=== PATIENT | female | born 1945 | race Caucasian/White ===

== ENCOUNTER → 2018-08-17 11:07 | Outpatient (CLI) | payer MEDICARE, SELFPAY ==
[2018-08-17 12:06] LABS: Eosinophils % 0.3 % (0.1-12.0); Hematocrit 41.2 % (37.0-47.0); Lymphocytes % 13.2 K/mm3 (10-50); Mean Corpuscular HGB Conc 31.5 g/dL (31.8-35.4); Mean Corpuscular Hemoglobin 28.3 pg (27.0-31.2); Mean Corpuscular Volume 89.9 fl (81-99); Mean Platelet Volume 7.3 fl (7.4-10.4); Monocytes # 0.4 K/mm3 (0.1-1.0); Monocytes % 4.7 % (1.7-9.3); Neutrophils # 6.2 K/mm3 (1.8-7.8); Neutrophils % 81.7 % (37.0-80.0); Platelet Count 347 K/mm3 (142-424); Red Blood Count 4.59 M/mm3 (4.20-5.40); Red Cell Distribution Width 12.4 % (11.5-17.5); White Blood Count 7.6 K/mm3 (4.8-10.8)
[2018-08-17 13:12] LABS: Alanine Aminotransferase 42 U/L (12-78); Albumin Level 4.1 gm/dL (3.4-5.0); Albumin/Globulin Ratio 1.2 (1.1-1.8); Alkaline Phosphatase 108 U/L (46-116); Anion Gap 10.4 mEq/L (5-15); Aspartate Amino Transferase 28 U/L (15-37); Bilirubin,Total 0.2 mg/dL (0.2-1.0); Blood Urea Nitrogen 11 mg/dL (7-18); Carbon Dioxide 29 mmol/L (21.0-32.0); Chloride 104 mmol/L (98-107); Chol/HDL Ratio 4.2 (1-3.5); Cholesterol 208 mg/dL (140-200); Creatinine,Serum 0.68 mg/dL (0.55-1.02); Estimated Glomerular Filt Rate 85 ml/min (>60); GFR (African American) 103 ML/MIN (>60); Globulin 3.3 gm/dl (1.3-3.2); Glucose 98 mg/dL (74-106); HDL Cholesterol 49 mg/dL (29-89); LDL Cholesterol 112 mg/dL (0-130); Potassium 4.4 mmoL/L (3.5-5.1); Sodium 139 mmol/L (136-145); Total Protein,Serum 7.4 gm/dL (6.4-8.2); Triglycerides 237 mg/dL (30-200); VLDL Cholesterol 47 mg/dL (0-40)
[2018-08-18 10:16] LABS: Lithium (Eskalith(R)) 0.5 mmol/L (0.6-1.2)
== END ==
PROVIDERS: PCP Internal Medicine Adolescent Medicine; Visit Provider Internal Medicine Adolescent Medicine
DX: E78.5 Hyperlipidemia, unspecified (principal); F31.9 Bipolar disorder, unspecified; Z86.2 Personal history of diseases of the blood and blood-forming organs and certain disorders involving the immune mechanism
CPT/HCPCS: 36415; 80053; 80061; 80178; 85025

== ENCOUNTER 2019-01-23 22:45 | Inpatient (IN) ==
[2019-01-23 23:34] LABS: Basophils % 0.1 % (0.1-2.0); Eosinophils % 0.1 % (0.1-12.0); Hematocrit 39.8 % (37.0-47.0); Hemoglobin 12.8 g/dL (12.2-16.2); Lymphocytes # 1.7 K/mm3 (0.7-4.5); Lymphocytes % 9.3 % (10-50); Mean Corpuscular HGB Conc 32.3 g/dL (31.8-35.4); Mean Corpuscular Hemoglobin 28.3 pg (27.0-31.2); Mean Corpuscular Volume 87.7 fl (81-99); Mean Platelet Volume 7.5 fl (7.4-10.4); Monocytes # 1.1 K/mm3 (0.1-1.0); Monocytes % 6.1 % (1.7-9.3); Neutrophils # 15.3 K/mm3 (1.8-7.8); Neutrophils % 84.4 % (37.0-80.0); Platelet Count 525 K/mm3 (142-424); Red Blood Count 4.54 M/mm3 (4.20-5.40); White Blood Count 18.2 K/mm3 (4.8-10.8)
--- NOTE | 2019-01-23 23:34 | Emergency Department Note ---
ED Disposition Clinical Impression: Febrile illness, acute Rhabdomyolysis Qualifiers: Rhabdomyolysis type: non-traumatic Qualified Code(s): M62.82 - Rhabdomyolysis Disposition: Admitted as Observation Condition on Discharge: Fair Referrals: Miguel Newsome MD [Primary Care Provider] - - Critical Care Critical Care Time: No Attestation: On 01/23/19, the high probability of a clinically significant, sudden or life threatening deterioration of the following system(s) required my full and direct attention, intervention and personal management. The time I documented below is in addition to time spent performing reported procedures but includes the following listed in this critical care notation. Medical Decision Making - Medical Records Medical records reviewed: Yes: I reviewed the patient's medical records. - Anthony Inquiry Pt receiving controlled substance: No Vital Signs: 01/23/19 23:07 01/24/19 00:03 Temperature 101.4 F H Temperature Source Rectal Pulse Rate [Right Radial] 131 H 124 H Respiratory Rate 20 20 Blood Pressure [Right Arm] 137/75 132/74 Blood Pressure Mean [Right Arm] 95 93 Blood Pressure Source [Right Arm] Automatic Cuff Blood Pressure Position [Right Arm] Supine 02 Sat by Pulse Oximetry 94 L 94 L - Lab Data Lab results reviewed: Yes: I reviewed the patient's lab results. Lab Results 01/23/19 23:15: Urine Color Yellow, Urine Appearance Clear, Urine pH 6.5, Ur S pecific [place] <= 1.005, Urine Protein Negative, Urine Glucose (UA) Negative, Urine Ketones 1+, Urine Blood Trace-i, Urine Nitrate Negative, Urine Bilirubin Negative, Urine Urobilinogen 0.2, Ur Leukocyte Esterase Negative, Urine RBC 3-5, Urine WBC Occasional, Ur Squamous Epith Cells 3-5, Urine Bacteria Trace 01/23/19 23:15: WBC 18.2 H, RBC 4.54, Hgb 12.8, Hct 39.8, MCV 87.7, MCH 28.3, MCHC 32.3, RDW 13.0, Plt Count 525 H, MPV 7.5, Neut % (Auto) 84.4 H, Lymph % (Auto) 9.3 L, [place] % (Auto) 6.1, Eos % (Auto) 0.1, Baso % (Auto) 0.1, Neut # (Auto) 15.3 H, Lymph # (Auto) 1.7, [place] # (Auto) 1.1 H, Eos # (Auto) 0.0, Baso # (Auto) 0.0, Total Counted 100, Neutrophils % (Manual) 89 H, Lymphocytes % (Manual) 6 L, Monocytes % (Manual) 5, Platelet Estimate Normal, Anisocytosis 1+, Stomatocytes 1+ 01/23/19 23:15: Sodium 134 L, Potassium 3.2 L, Chloride 96 L, Carbon Dioxide 19 L, Anion Gap 22.2 H, BUN 6 L, Creatinine 0.73, Estimated Creat Clear 46, Es timated GFR 78, Est GFR ( Amer) 95, Glucose 171 H, Calcium 9.4, Total Bilirubin 0.5, AST 44 H, ALT 23, Alkaline Phosphatase 98, Total Creatine Kinase 1340 H*, Troponin I < 0.02, Total Protein 7.6, Albumin 3.7, Globulin 3.9 H, Albumin/Globulin Ratio 0.9 L 01/23/19 23:15: Influenza Type A Ag Negative, Influenza Type B Ag Negative 01/23/19 23:15: Lactate 1.7 Result diagrams: 01/23/19 23:15 01/23/19 23:15 Orders (Tests/Meds): ED MEDICATIONS Generic Name Dose Route Start Last Admin Trade Name Freq PRN Reason Stop Dose Admin Sodium Chloride 1,000 mls @ 999 mls/hr 01/23/19 23:15 01/23/19 23:27 Sod Chlor 0.9% 1000ml Bag IV 01/24/19 00:15 999 mls/hr .[id number] ROGELIO Administration Sodium Chloride 10 ml 01/23/19 23:13 Saline Flush 10ml Syringe IV 02/22/19 23:12 NEEDED PRN Maintain IV Site Discontinued Medications Generic Name Dose Route Start Last Admin Trade Name Freq PRN Reason Stop Dose Admin Acetaminophen 650 mg 01/23/19 23:13 01/23/19 23:27 Tylenol 325mg Suppository RC 01/23/19 23:14 650 mg ONCE ONE Administration Ondansetron HCl 4 mg 01/23/19 23:59 01/24/19 00:10 Zofran 4mg/2ml Vial IV 01/24/19 00:00 4 mg ONCE ONE Administration ORDERS Category Date Time Status CT cervical spine wo con Stat Cat Scan 01/23/19 23:[address] head/brain wo con Stat Cat Scan 01/23/19 23:12 Taken XR chest portable Stat Exams 01/23/19 23:12 Taken XR pelvis 1-2V Stat Exams 01/23/19 23:13 Taken [place] (Eskalith(R)) Stat Lab 01/23/19 23:15 Received Blood Culture Stat Micro 01/23/19 23:28 Received - Radiology Data #1 Image(s): Chest, Pelvis Image Reviewed: Yes I reviewed the patient's radiology image Preliminary Findings: No Fracture Seen - CT Data CT Scan: Head, C-Spine Time Received: 00:[address] Reviewed: Yes: I have viewed the radiologist's interpretation Preliminary Findings: No Fracture Seen - ECG Data Tracing #1 I reviewed this ECG and interpreted as documented below: Arrhythmias present: sinus tach Ischemic changes: non-specific ST-T wave changes - Physician Consults Physician Consulted: ruperto Reason -: Admission Fever HPI - General Chief Complaint: Fever Stated Complaint: vomiting,weakness Time Seen by Provider: 01/23/19 23:15 Mode of Arrival: Family Vehicle Source of Information: Patient, Spouse, Relative, Medical Record Limitations: Physical Limitations Description of Symptoms (Recalled from ER Triage Doc. by RN): pt has been ill for a few months per family. pt has been battling bells palsy. family reports that tonight patient became "uneasy to comfort" and she felt hot. pt then vomited. pt is weak and states she is "too weak to stand." family reports a fall 4 days ago at home. - History of Present Illness HPI Narrative: pt with weakness and dec po intake over the last few days - no diarrhea or reported skin breakdown - no cough - has been lying down more than before MD complaint: weakness Onset (ago): day(s) Treatments prior to arrival fever: none - Related Data Home Medications Medication Instructions Recorded Confirmed ARIPiprazole [Aripiprazole 15mg 15 mg PO DAILY 01/23/19 01/23/19 Tablet] Ferrous Sulfate 325 mg PO DAILY 01/23/19 01/23/19 [place] Carbonate [[place] 300 mg PO BID 01/23/19 01/23/19 Carbonate ER] Oxybutynin Chloride [Oxybutynin 15 mg PO DAILY 01/23/19 01/23/19 Chloride ER] Quetiapine Fumarate 300 mg PO DAILY 01/23/19 01/23/19 Trazodone HCl 150 mg PO DAILY 01/23/19 01/23/19 buPROPion HCl [Bupropion HCl Sr] 100 mg PO BID 01/23/19 01/23/19 Allergies Allergy/AdvReac Type Severity Reaction Status Date / Time polymyxin B [POLYMYXIN B] Allergy Intermediate SKIN Verified 01/23/19 23:27 REDDNESS sulfamethoxazole Allergy Intermediate I-RASH Verified 01/23/19 23:27 [From BACTRIM] trimethoprim [From BACTRIM] Allergy Intermediate I-RASH Verified 01/23/19 23:27 acetaminophen Allergy Unknown Verified 01/23/19 23:27 [From HYCOMINE COMPOUND] ampicillin [AMPICILLIN] Allergy Unknown Verified 01/23/19 23:27 atropine [ATROPINE] Allergy Unknown Verified 01/23/19 23:27 azithromycin [AZITHROMYCIN] Allergy Unknown Verified 01/23/19 23:27 cefaclor [From CECLOR] Allergy Unknown Verified 01/23/19 23:27 chlorpheniramine Allergy Unknown Verified 01/23/19 23:27 [CHLORPHENIRAMINE] clemastine [CLEMASTINE] Allergy Unknown Verified 01/23/19 23:27 codeine [CODEINE] Allergy Unknown Verified 01/23/19 23:27 doxycycline [DOXYCYCLINE] Allergy Unknown Verified 01/23/19 23:27 hydrocodone Allergy Unknown Verified 01/23/19 23:27 [From HYCOMINE COMPOUND] hyoscyamine Allergy Unknown Verified 01/23/19 23:27 [From STAHIST (REFORMULATED)] ibuprofen [From MOTRIN] Allergy Unknown Verified 01/23/19 23:27 iodine [IODINE] Allergy Unknown Verified 01/23/19 23:27 lincomycin [LINCOMYCIN] Allergy Unknown Verified 01/23/19 23:27 metronidazole [METRONIDAZOLE] Allergy Unknown Verified 01/23/19 23:27 neomycin [NEOMYCIN] Allergy Unknown Verified 01/23/19 23:27 nitrofurantoin Allergy Unknown Verified 01/23/19 23:27 [NITROFURANTOIN] ofloxacin [OFLOXACIN] Allergy Unknown Verified 01/23/19 23:27 phenylephrine Allergy Unknown Verified 01/23/19 23:27 [From HYCOMINE COMPOUND] pseudoephedrine Allergy Unknown Verified 01/23/19 23:27 [PSEUDOEPHEDRINE] scopolamine Allergy Unknown Verified 01/23/19 23:27 [From STAHIST (REFORMULATED)] Sulfa (Sulfonamide Allergy Unknown Verified 01/23/19 23:27 Antibiotics) [SULFA (SULFONAMIDE ANTIBIOTICS)] tetanus and diphtheria Allergy Unknown Verified 01/23/19 23:27 toxoids [TETANUS AND DIPHTHERIA TOXOIDS] From EGGS (FOOD/DRUG) Allergy Mild GI UPSET Uncoded 10/19/17 15:01 From STRAWBERRIES (FOOD/DRUG) Allergy Mild FACE TURNS Uncoded 10/19/17 15:01 RED AZOGANTRISIN Allergy Unknown UNKNOWN Uncoded 10/19/17 15:01 RAXAR TABLETS Allergy Unknown UNKNOWN Uncoded 10/19/17 15:01 TETRACYCLINES Allergy Unknown Uncoded 10/19/17 15:01 THEMAZOPYRIDINE Allergy Unknown UNKNOWN Uncoded 10/19/17 15:01 URISED Allergy Unknown UNKNOWN Uncoded 10/19/17 15:01 [facility] History - Hepatitis A Screen Drug use history?: No High risk sexual behaviors?: No History of sexually transmitted infection?: No Currently employed?: No Childcare worker?: No Do you have indoor plumbing?: Yes Do you have electricity?: Yes Attestation statement:: This patient has been screened for Hepatitis A risk factors. I have reviewed the patient's past medical history: Yes Medical History: Denies:: Cancer, Diabetes Mellitus Type 1, Diabetes Mellitus Type 2, MRSA Amputation: No - Social History Alcohol Intake: never Occupational Status: retired - Psychiatric History Expresses thoughts of harming self/others: None Suicide Plan Description: No Plan ROS Obtained: Yes All systems reviewed & no additional complaints - Constitutional Constitutional: Reports fever(s), Reports weakness - Eyes Eyes: Denies change in vision - ENT Ears, Nose, Mouth, and Throat: Denies sore throat - Cardiovascular Cardiovascular: Denies chest pain - Respiratory Respiratory: No cough - Gastrointestinal Gastrointestingal: Denies: abdominal pain - Genitourinary Female Genitourinary: Denies hematuria - Musculoskeletal Musculoskeletal: Denies joint pain - Integumentary/Breasts Skin/Breast: Denies rash - Neurologic Neurologic: Denies seizure-like activity Physical Exam - General General appearance: alert, lethargic - Head Head exam: normocephalic - Eye Eye exam: Present: other (wearing patch rt eye has hx of bells palsy) - ENT ENT exam: Present: mucous membranes dry - Neck Neck exam: Present: trachea midline - Respiratory Respiratory exam: Present: other (dec bs bilat ). Absent: respiratory distress - Cardiovascular Cardiovascular exam: Present: regular rate, systolic murmur - Abdominal Exam Abdominal exam: Present: soft. Absent: tenderness, guarding - Extremities Exam Extremities exam: Absent: calf tenderness - Neurological Exam Neurological exam: Present: alert, oriented X3, CN II-XII intact - Psychiatric Psychiatric exam: Present: normal affect - Skin Skin exam: Absent: rash
[2019-01-23 23:39] LABS: Microscopic, Urine URINE MICROSCOPIC (MICROSCOPIC)
[2019-01-23 23:42] LABS: Appearance,Urine CLEAR (Clear); Bilirubin,Urine Negative (Negative); Blood, Urine TRACE-I (Negative); Color,Urine YELLOW (Yellow); Glucose,Urine (UA) Negative (Negative); Ketones,Urine 1+ (Negative); Leukocyte Esterase,Urine Negative (Negative); PH,Urine 6.5 (5.0-8.5); Protein,Urine Negative (Negative); Specific Gravity, Urine <= 1.005 (1.005-1.030); Urobilinogen,Urine 0.2 EU/dl (0.2)
[2019-01-23 23:49] LABS: Bacteria,Urine Trace /lpf; WBC,Urine Occasional #/hpf (0-3)
[2019-01-23 23:56] LABS: Alanine Aminotransferase 23 U/L (12-78); Albumin Level 3.7 gm/dL (3.4-5.0); Albumin/Globulin Ratio 0.9 (1.1-1.8); Alkaline Phosphatase 98 U/L (46-116); Anion Gap 22.2 mEq/L (5-15); Aspartate Amino Transferase 44 U/L (15-37); Bilirubin,Total 0.5 mg/dL (0.2-1.0); Blood Urea Nitrogen 6 mg/dL (7-18); Calcium 9.4 mg/dL (8.5-10.1); Carbon Dioxide 19 mmol/L (21.0-32.0); Chloride 96 mmol/L (98-107); Globulin 3.9 gm/dl (1.3-3.2); Glucose 171 mg/dL (74-106); Potassium 3.2 mmoL/L (3.5-5.1); Sodium 134 mmol/L (136-145); Total Protein,Serum 7.6 gm/dL (6.4-8.2)
[2019-01-23 23:58] LABS: Creatine Kinase 1340 U/L (26-192)
[2019-01-24 00:10] LABS: Anisocytosis 1+; Lymphocytes % 6 % (10-50); Monocytes % 5 % (2-9); Neutrophils % 89 % (42-76); Stomatocytes 1+; Total Cells Counted 100
[2019-01-24 06:29] LABS: Hematocrit 37.1 % (37.0-47.0); Hemoglobin 11.9 g/dL (12.2-16.2); Lymphocytes # 1.2 K/mm3 (0.7-4.5); Lymphocytes % 9.4 % (10-50); Mean Corpuscular Hemoglobin 28.7 pg (27.0-31.2); Mean Corpuscular Volume 89.8 fl (81-99); Mean Platelet Volume 6.9 fl (7.4-10.4); Monocytes # 0.6 K/mm3 (0.1-1.0); Monocytes % 4.8 % (1.7-9.3); Neutrophils # 10.5 K/mm3 (1.8-7.8); Neutrophils % 85.7 % (37.0-80.0); Platelet Count 400 K/mm3 (142-424); Red Blood Count 4.14 M/mm3 (4.20-5.40); Red Cell Distribution Width 12.9 % (11.5-17.5); White Blood Count 12.3 K/mm3 (4.8-10.8)
--- NOTE | 2019-01-24 07:27 | Pharmacy Consult Notes ---
[facility] Pharmacy VTE Monitoring - Patient Demographics Admission date: 01/23/19 Report Date: 01/24/19 Time: 07: Allergies/Adverse Reactions: Patient Allergies polymyxin B [POLYMYXIN B] Allergy (Intermediate, Verified 01/23/19 23:27) SKIN REDDNESS sulfamethoxazole [From BACTRIM] Allergy (Intermediate, Verified 01/23/19 23:27) I-RASH trimethoprim [From BACTRIM] Allergy (Intermediate, Verified 01/23/19 23:27) I-RASH acetaminophen [From HYCOMINE COMPOUND] Allergy (Unknown, Verified 01/23/19 23:27) ampicillin [AMPICILLIN] Allergy (Unknown, Verified 01/23/19 23:27) atropine [ATROPINE] Allergy (Unknown, Verified 01/23/19 23:27) azithromycin [AZITHROMYCIN] Allergy (Unknown, Verified 01/23/19 23:27) cefaclor [From CECLOR] Allergy (Unknown, Verified 01/23/19 23:27) chlorpheniramine [CHLORPHENIRAMINE] Allergy (Unknown, Verified 01/23/19 23:27) clemastine [CLEMASTINE] Allergy (Unknown, Verified 01/23/19 23:27) codeine [CODEINE] Allergy (Unknown, Verified 01/23/19 23:27) doxycycline [DOXYCYCLINE] Allergy (Unknown, Verified 01/23/19 23:27) hydrocodone [From HYCOMINE COMPOUND] Allergy (Unknown, Verified 01/23/19 23:27) hyoscyamine [From STAHIST (REFORMULATED)] Allergy (Unknown, Verified 01/23/19 23:27) ibuprofen [From MOTRIN] Allergy (Unknown, Verified 01/23/19 23:27) iodine [IODINE] Allergy (Unknown, Verified 01/23/19 23:27) lincomycin [LINCOMYCIN] Allergy (Unknown, Verified 01/23/19 23:27) metronidazole [METRONIDAZOLE] Allergy (Unknown, Verified 01/23/19 23:27) neomycin [NEOMYCIN] Allergy (Unknown, Verified 01/23/19 23:27) nitrofurantoin [NITROFURANTOIN] Allergy (Unknown, Verified 01/23/19 23:27) ofloxacin [OFLOXACIN] Allergy (Unknown, Verified 01/23/19 23:27) phenylephrine [From HYCOMINE COMPOUND] Allergy (Unknown, Verified 01/23/19 23:27) pseudoephedrine [PSEUDOEPHEDRINE] Allergy (Unknown, Verified 01/23/19 23:27) scopolamine [From STAHIST (REFORMULATED)] Allergy (Unknown, Verified 01/23/19 23:27) Sulfa (Sulfonamide Antibiotics) [SULFA (SULFONAMIDE ANTIBIOTICS)] Allergy (Unknown, Verified 01/23/19 23:27) tetanus and diphtheria toxoids [TETANUS AND DIPHTHERIA TOXOIDS] Allergy (Unknown, Verified 01/23/19 23:) From EGGS (FOOD/DRUG) Allergy (Mild, Uncoded 10/19/17 15:01) GI UPSET From STRAWBERRIES (FOOD/DRUG) Allergy (Mild, Uncoded 10/19/17 15:01) FACE TURNS RED AZOGANTRISIN Allergy (Unknown, Uncoded 10/19/17 15:01) UNKNOWN RAXAR TABLETS Allergy (Unknown, Uncoded 10/19/17 15:01) UNKNOWN TETRACYCLINES Allergy (Unknown, Uncoded 10/19/17 15:01) THEMAZOPYRIDINE Allergy (Unknown, Uncoded 10/19/17 15:01) UNKNOWN URISED Allergy (Unknown, Uncoded 10/19/17 15:01) UNKNOWN Height: 1.57 m Weight: 54.686 kg Patient Problems: Current Active Problems Febrile illness, acute (Acute) Rhabdomyolysis (Acute) - VTE Risk Labs: VTE Related Lab Results Hgb 11.9 g/dL (12.2-16.2) L 01/24/19 05:50 Hct 37.1 % (37.0-47.0) 01/24/19 05:50 Plt Count 400 K/mm3 (142-424) 01/24/19 05:50 BUN 4 mg/dL (7-18) L D 01/24/19 05:50 Creatinine 0.64 mg/dL (0.55-1.02) 01/24/19 05:50 Estimated Creat Clear 44 mL/min (50-200) 01/24/19 05:50 Was VTE Risk Assessment Performed: Yes VTE Score: 1 VTE Risk Level: Very Low Risk - Prophylaxis VTE Prophylaxis Ordered?: Yes Types of VTE Prophylaxis: TEDS Knee High Location of Applied Device: Bilateral Lower Extremeties - VTE Diagnosis Confirmed Treatment or plan recommended: Continue Current Treatment
[2019-01-24 07:56] LABS: Calcium 8.3 mg/dL (8.5-10.1)
--- NOTE | 2019-01-24 11:35 | History & Physical Report ---
*Admission Date: 01/23/19 *Chief complaint: fever, dehydration, rhabdomyelisis *History of present illness: Ms. Peck is a 73-year-old female with history of Correa's palsy who presents to the ER with headache for 4 days and onset of fever and irritability on day of admission. She reports she fell at home sustaining no visible injuries, no concussion per her . She proceeded to have onset of headache on Wednesday that did not respond to multiple doses of Excedrin Migraine over the course of the weekend. On Wednesday she became more irritable, developed a fever, nausea, vomiting. Due to weakness from this illness the family brought her to the emergency room for assessment. On presentation she was found to have a fever greater than 101. Lab work significant for elevated CK and leukocytosis. Imaging was unremarkable for any fractures or intracranial pathology. On my assessment this morning patient is in bed under the covers because she is chilling. Denies any nausea or vomiting. Headache is improving with Tylenol. Of note she has a patch on her right eye due to her Correa's palsy, and has copious purulent drainage from her right eye. This was unfortunately not remarked on at time of presentation to the emergency room. Otherwise she denies shortness of breath, confusion, altered mental status, new focal neurologic deficits, chest pain [facility] History I have reviewed the patient's past medical history: Yes Medical History: Reports:: Hyperlipidemia Denies:: Cancer, Diabetes Mellitus Type 1, Diabetes Mellitus Type 2, MRSA *Have you ever received a pneumonia vaccine?: Yes *Have you received a flu vaccine this season?: Yes Amputation: No - *Social History Alcohol Intake: never *Occupational Status:: retired Housing: house Household Members: spouse *Travel in the last 8 weeks: None - Psychiatric History Expresses thoughts of harming self/others: None Suicide Plan Description: No Plan Family Hx:: Unable to obtain Review of Systems - *Neurologic Reports weakness, Denies seizure-like activity Meds Home Medications Medication Instructions Recorded Confirmed Type ARIPiprazole [Aripiprazole 15mg 15 mg PO 1900 01/23/19 01/24/19 History Tablet] Ferrous Sulfate 325 mg PO 0600 01/23/19 01/24/19 History Intercourse Carbonate [Intercourse 300 mg PO 1700 01/23/19 01/24/19 History Carbonate ER] Oxybutynin Chloride [Oxybutynin 15 mg PO 1800 01/23/19 01/24/19 History Chloride ER] Quetiapine Fumarate 300 mg PO 1900 01/23/19 01/24/19 History Trazodone HCl 150 mg PO 1900 01/23/19 01/24/19 History buPROPion HCl [Bupropion HCl Sr] 100 mg PO 0600,1500 01/23/19 01/24/19 History Allergies Allergy/AdvReac Type Severity Reaction Status Date / Time polymyxin B [POLYMYXIN B] Allergy Intermediate SKIN Verified 01/23/19 23:27 REDDNESS sulfamethoxazole Allergy Intermediate I-RASH Verified 01/23/19 23:27 [From BACTRIM] trimethoprim [From BACTRIM] Allergy Intermediate I-RASH Verified 01/23/19 23:27 acetaminophen Allergy Unknown Verified 01/23/19 23:27 [From HYCOMINE COMPOUND] ampicillin [AMPICILLIN] Allergy Unknown Verified 01/23/19 23:27 apple Allergy Unknown Verified 01/24/19 12:39 atropine [ATROPINE] Allergy Unknown Verified 01/23/19 23:27 azithromycin [AZITHROMYCIN] Allergy Unknown Verified 01/23/19 23:27 cefaclor [From CECLOR] Allergy Unknown Verified 01/23/19 23:27 chlorpheniramine Allergy Unknown Verified 01/23/19 23:27 [CHLORPHENIRAMINE] clemastine [CLEMASTINE] Allergy Unknown Verified 01/23/19 23:27 codeine [CODEINE] Allergy Unknown Verified 01/23/19 23:27 doxycycline [DOXYCYCLINE] Allergy Unknown Verified 01/23/19 23:27 hydrocodone Allergy Unknown Verified 01/23/19 23:27 [From HYCOMINE COMPOUND] hyoscyamine Allergy Unknown Verified 01/23/19 23:27 [From STAHIST (REFORMULATED)] ibuprofen [From MOTRIN] Allergy Unknown Verified 01/23/19 23:27 iodine [IODINE] Allergy Unknown Verified 01/23/19 23:27 lincomycin [LINCOMYCIN] Allergy Unknown Verified 01/23/19 23:27 metronidazole [METRONIDAZOLE] Allergy Unknown Verified 01/23/19 23:27 neomycin [NEOMYCIN] Allergy Unknown Verified 01/23/19 23:27 nitrofurantoin Allergy Unknown Verified 01/23/19 23:27 [NITROFURANTOIN] ofloxacin [OFLOXACIN] Allergy Unknown Verified 01/23/19 23:27 phenylephrine Allergy Unknown Verified 01/23/19 23:27 [From HYCOMINE COMPOUND] pseudoephedrine Allergy Unknown Verified 01/23/19 23:27 [PSEUDOEPHEDRINE] scopolamine Allergy Unknown Verified 01/23/19 23:27 [From STAHIST (REFORMULATED)] Sulfa (Sulfonamide Allergy Unknown Verified 01/23/19 23:27 Antibiotics) [SULFA (SULFONAMIDE ANTIBIOTICS)] tetanus and diphtheria Allergy Unknown Verified 01/23/19 23:27 toxoids [TETANUS AND DIPHTHERIA TOXOIDS] From STRAWBERRIES (FOOD/DRUG) Allergy Mild FACE TURNS Uncoded 10/19/17 15:01 RED AZOGANTRISIN Allergy Unknown UNKNOWN Uncoded 10/19/17 15:01 RAXAR TABLETS Allergy Unknown UNKNOWN Uncoded 10/19/17 15:01 TETRACYCLINES Allergy Unknown Uncoded 10/19/17 15:01 THEMAZOPYRIDINE Allergy Unknown UNKNOWN Uncoded 10/19/17 15:01 URISED Allergy Unknown UNKNOWN Uncoded 10/19/17 15:01 Exam Vital signs and Labs for Last 24 Hours: Temp Pulse Resp BP Pulse Ox 99.2 F 104 H 18 122/74 97 01/24/19 07:41 01/24/19 07:41 01/24/19 07:41 01/24/19 07:41 01/24/19 07:41 Laboratory Results - last 24 hr 01/23/19 23:15: Urine Color Yellow, Urine Appearance Clear, Urine pH 6.5, Ur Specific [place] <= 1.005, Urine Protein Negative, Urine Glucose (UA) Negative, Urine Ketones 1+, Urine Blood Trace-i, Urine Nitrate Negative, Urine Bilirubin Negative, Urine Urobilinogen 0.2, Ur Leukocyte Esterase Negative, Urine RBC 3-5, Urine WBC Occasional, Ur Squamous Epith Cells 3-5, Urine Bacteria Trace 01/23/19 23:15: WBC 18.2 H, RBC 4.54, Hgb 12.8, Hct 39.8, MCV 87.7, MCH 28.3, MCHC 32.3, RDW 13.0, Plt Count 525 H, MPV 7.5, Neut % (Auto) 84.4 H, Lymph % (Auto) 9.3 L, [place] % (Auto) 6.1, Eos % (Auto) 0.1, Baso % (Auto) 0.1, Neut # (Auto) 15.3 H, Lymph # (Auto) 1.7, [place] # (Auto) 1.1 H, Eos # (Auto) 0.0, Baso # (Auto) 0.0, Total Counted 100, Neutrophils % (Manual) 89 H, Lymphocytes % (Manual) 6 L, Monocytes % (Manual) 5, Platelet Estimate Normal, Anisocytosis 1+, Stomatocytes 1+ 01/23/19 23:15: Sodium 134 L, Potassium 3.2 L, Chloride 96 L, Carbon Dioxide 19 L, Anion Gap 22.2 H, BUN 6 L, Creatinine 0.73, Estimated Creat Clear 46, Estimated GFR 78, Est GFR ( Amer) 95, Glucose 171 H, Calcium 9.4, Total Bilirubin 0.5, AST 44 H, ALT 23, Alkaline Phosphatase 98, Total Creatine Kinase 1340 H*, Troponin I < 0.02, Total Protein 7.6, Albumin 3.7, Globulin 3.9 H, Albumin/Globulin Ratio 0.9 L 01/23/19 23:15: Influenza Type A Ag Negative, Influenza Type B Ag Negative 01/23/19 23:15: Lactate 1.7 01/24/19 05:50: WBC 12.3 H D, RBC 4.14 L, Hgb 11.9 L, Hct 37.1, MCV 89.8, MCH 28.7, MCHC 32.0, RDW 12.9, Plt Count 400, MPV 6.9 L, Neut % (Auto) 85.7 H, Lymph % (Auto) 9.4 L, [place] % (Auto) 4.8, Eos % (Auto) 0.0 L, Baso % (Auto) 0.0 L, Neut # (Auto) 10.5 H, Lymph # (Auto) 1.2, [place] # (Auto) 0.6, Eos # (Auto) 0.0, Baso # (Auto) 0.0 01/24/19 05:50: Sodium 140, Potassium 3.0 L, Chloride 105, Carbon Dioxide 23 D, Anion Gap 15.0, BUN 4 L D, Creatinine 0.64, Estimated Creat Clear 44, Estimated GFR 91, Est GFR ( Amer) 110, Glucose 119 H D, Calcium 8.3 L D, Magnesium 1.7 01/24/19 05:50: Total Creatine Kinase 1334 H* I & O for Last 24 hours: Intake & Output 01/21/19 01/22/19 01/23/19 01/24/19 23:59 23:59 23:59 23:59 Intake Total 1328 / 1328 Output Total 1200 / 1200 Balance 128 / 128 Weight 57.153 kg 54.686 kg - Constitutional chronically ill appearing - *Routine HEENT Exam Comments: right sided facial paralysis consistent with her bells palsy; vision intact bilaterally - right eye with significant suffusion of conjunctiva, erythema of bilateral eye lids, purulent drainage from right eye. - EOMI intact, non painful - *Routine Neck Exam Present: supple. Absent: lymphadenopathy - *Routine Respiratory Exam Present: CTA bilaterally - *Routine Cardiovascular Exam Present: RRR - *Routine Abdominal Exam Present: soft, normoactive bowel sounds. Absent: tenderness - *Routine Extremities Exam Absent: cyanosis, clubbing, edema Comments: muscle wasting, thin extremities - *Routine Skin Exam Present: warm. Absent: rash - *Routine Neurological Exam Present: alert, oriented X3 Assessment and Plan (1) Preseptal cellulitis of right eye Current visit: Yes Status: Acute Category: Medical Code(s): L03.213 - Periorbital cellulitis Patient has Correa's palsy of the right eye, presents with over a week of purulent drainage from the eye and 5 days of headache. Started clindamycin IV and gentamicin drops. Monitor for improvement. CT scan of orbits showed concern for preseptal cellulitis with no periorbital or retro-orbital abscesses. At this time will assess for response to IV antibiotics. 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 Continue IVF rehydration (5) Hypokalemia Current visit: Yes Status: Acute Category: Medical Code(s): E87.6 - Hypokalemia replace as needed, labs in AM to monitor
[2019-01-25 07:15] LABS: Eosinophils % 0.3 % (0.1-12.0); Hematocrit 33.3 % (37.0-47.0); Hemoglobin 10.3 g/dL (12.2-16.2); Lymphocytes # 1.2 K/mm3 (0.7-4.5); Lymphocytes % 15.6 % (10-50); Mean Corpuscular Hemoglobin 28.2 pg (27.0-31.2); Mean Corpuscular Volume 90.9 fl (81-99); Mean Platelet Volume 6.8 fl (7.4-10.4); Monocytes # 0.5 K/mm3 (0.1-1.0); Neutrophils % 78.1 % (37.0-80.0); Platelet Count 360 K/mm3 (142-424); Red Blood Count 3.66 M/mm3 (4.20-5.40); Red Cell Distribution Width 13.3 % (11.5-17.5); White Blood Count 7.7 K/mm3 (4.8-10.8)
[2019-01-25 07:24] LABS: Anion Gap 13.1 mEq/L (5-15); Calcium 7.6 mg/dL (8.5-10.1); Potassium 3.1 mmoL/L (3.5-5.1)
--- NOTE | 2019-01-25 08:10 | Progress Note ---
Internal Medicine - PN: Subj *Date: 01/25/19 *Time: 08:07 Interval history: Patient is a little more talkative today according to her . Continuing to wear her eye patch, when this is removed has less purulent drainage than yesterday, has some significantly reddened sclera and some discoloration to the pupil on cursory flashlight exam. Her lungs are clear, heart rate is regular. Nursing staff points out a new rash on the left flank that her states has been there for a couple of weeks that is not associated with burning or tingling. The rash is a 5 cm x 2 cm oval patch of redness with vesicles consistent with shingles. Patient is talkative, able to move arms and legs well. The left eye is normal with normal range of motion. The surrounding tissue of the right eye is much less reddened. Exam Vital signs and Labs for Last 24 Hours: Temp Pulse Resp BP Pulse Ox 98.2 F 92 H 18 128/72 94 L 01/25/19 07:55 01/25/19 07:55 01/25/19 07:55 01/25/19 07:55 01/25/19 07:55 Laboratory Results - last 24 hr 01/24/19 05:50: Total Creatine Kinase 1334 H* 01/25/19 06:16: WBC 7.7 D, RBC 3.66 L, Hgb 10.3 L, Hct 33.3 L, MCV 90.9, MCH 28.2, MCHC 31.0 L, RDW 13.3, Plt Count 360, MPV 6.8 L, Neut % (Auto) 78.1, Lymph % (Auto) 15.6, [place] % (Auto) 6.0, Eos % (Auto) 0.3, Baso % (Auto) 0.0 L, Neut # (Auto) 6.0, Lymph # (Auto) 1.2, [place] # (Auto) 0.5, Eos # (Auto) 0.0, Baso # (Auto) 0.0 01/25/19 06:16: Sodium 140, Potassium 3.1 L, Chloride 107, Carbon Dioxide 23, Anion Gap 13.1, BUN 3 L, Creatinine 0.66, Estimated Creat Clear 44, Estimated GFR 88, Est GFR ( Amer) 107, Glucose 108 H, Calcium 7.6 L I & O for Last 24 hours: Intake & Output 01/22/19 01/23/19 01/24/19 01/25/19 11:59 11:59 11:59 11:59 Intake Total 1328 / 1328 3286 / 3286 Output Total 1200 / 1200 2550 / 2550 Balance 128 / 128 736 / 736 Weight 120 lb 9 oz 119 lb 9 oz Narrative: Her lungs are clear, heart rate is regular. Nursing staff points out a new rash on the left flank that her states has been there for a couple of weeks that is not associated with burning or tingling. The rash is a 5 cm x 2 cm oval patch of redness with vesicles consistent with shingles. Patient is talkative, able to move arms and legs well. The left eye is normal with normal range of motion. The surrounding tissue of the right eye is much less reddened. Assessment and Plan (1) Preseptal cellulitis of right eye Current visit: Yes Status: Acute Category: Medical Code(s): L03.213 - Periorbital cellulitis Seems to be clinically improving. Imaging study shows no evidence of post septal cellulitis. Ophthalmology evaluation today. 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 Check CPK and other labs tomorrow. (5) Hypokalemia Current visit: Yes Status: Acute Category: Medical Code(s): E87.6 - Hypokalemia (6) Anemia Current visit: Yes Status: Acute Qualifiers: Anemia type: other cause Category: Medical Code(s): D64.9 - Anemia, unspecified Dilutional anemia --follow clinically-currently asymptomatic. (7) Zoster Current visit: Yes Status: Acute Category: Medical Code(s): B02.9 - Zoster without complications Clinical presentation somewhat atypical but characteristic rash appearance. Start acyclovir orally.
[2019-01-26 07:15] LABS: Basophils % 0.1 % (0.1-2.0); Eosinophils % 0.5 % (0.1-12.0); Hematocrit 34.6 % (37.0-47.0); Hemoglobin 10.8 g/dL (12.2-16.2); Lymphocytes # 0.9 K/mm3 (0.7-4.5); Lymphocytes % 13.2 % (10-50); Mean Corpuscular HGB Conc 31.3 g/dL (31.8-35.4); Mean Corpuscular Hemoglobin 28.5 pg (27.0-31.2); Mean Corpuscular Volume 91.3 fl (81-99); Mean Platelet Volume 7.3 fl (7.4-10.4); Monocytes # 0.4 K/mm3 (0.1-1.0); Monocytes % 6.7 % (1.7-9.3); Neutrophils # 5.1 K/mm3 (1.8-7.8); Neutrophils % 79.5 % (37.0-80.0); Platelet Count 373 K/mm3 (142-424); Red Cell Distribution Width 13.4 % (11.5-17.5); White Blood Count 6.4 K/mm3 (4.8-10.8)
--- NOTE | 2019-01-26 07:17 | Discharge Summary ---
General - General Admission date:: 01/24/19 Discharge date: 01/26/19 HPI HPI: Ms. Peck is a 73-year-old female with history of Correa's palsy who presents to the ER with headache for 4 days and onset of fever and irritability on day of admission. She reports she fell at home sustaining no visible injuries, no concussion per her . She proceeded to have onset of headache on Wednesday that did not respond to multiple doses of Excedrin Migraine over the course of the weekend. On Wednesday she became more irritable, developed a fever, nausea, vomiting. Due to weakness from this illness the family brought her to the emergency room for assessment. On presentation she was found to have a fever greater than 101. Lab work significant for elevated CK and leukocytosis. Imaging was unremarkable for any fractures or intracranial pathology. On my assessment this morning patient is in bed under the covers because she is chilling. Denies any nausea or vomiting. Headache is improving with Tylenol. Of note she has a patch on her right eye due to her Correa's palsy, and has copious purulent drainage from her right eye. This was unfortunately not remarked on at time of presentation to the emergency room. Otherwise she denies shortness of breath, confusion, altered mental status, new focal neurologic deficits, chest pain Hospital Course Hospital Course: Patient was admitted, placed on intravenous antibiotics and topical gentamicin therapy for her significant orbital/preseptal cellulitis as noted. CT scanning of orbits was done which showed no evidence of post septal cellul itis. The following morning she was noticed to have some ulcerations on her cornea on the right side and ophthalmology was able to see her in consultation. Please see Dr. Gtz documentation for details, but he was gravely concerned about the significant size of a corneal ulceration and her need for probable surgical intervention with eyelid tacking procedures and aggressive topical and parenteral antibiotic therapy. He contacted Dr. Oliverio Li at [facility] ophthalmology who recommended follow-up in the [place] clinic the following day with plans for probable admission to the hospital at [facility]. The patient was kept here 1 more night for intravenous clindamycin because of the preseptal orbital cellulitis and the need for IV fluids because of her rhabdomyolysis. This morning she is feeling better. The external orbital area looks vastly improved with less purulent drainage from the sclera, and her other exam has also improved. She will be transferred by her 's vehicle to [facility] ophthalmology clinic for further evaluation. Objective Vital signs: Temp Pulse Resp BP Pulse Ox 97.7 F 99 H 18 130/76 95 01/26/19 03:30 01/26/19 03:30 01/26/19 03:30 01/26/19 03:30 01/26/19 03:30 Narrative: Patient is awake. Alert. Left eye is unremarkable. Right eye is covered with a patch. Much less purulent drainage. I did not remove the patch and examine the ulceration because of the presence of topical antibiotics. Her Correa's palsy is unchanged. Heart rate regular without murmurs. Lungs are clear bilaterally. Abdomen soft and nontender. No edema, clubbing or cyanosis. Of note skin rash that I examined yesterday has unchanged. reports that she has had this for several weeks, Zovirax orally was started yesterday but I believe the likelihood of active zoster is very low. Results Labs on day of discharge: Labs from last 24 hours 01/25/19 01/25/19 01/23/19 06:16 06:16 23:15 WBC 7.7 D RBC 3.66 L Hgb 10.3 L Hct 33.3 L MCV 90.9 MCH 28.2 MCHC 31.0 L RDW 13.3 Plt Count 360 MPV 6.8 L Neut % (Auto) 78.1 Lymph % (Auto) 15.6 [place] % (Auto) 6.0 Eos % (Auto) 0.3 Baso % (Auto) 0.0 L Neut # (Auto) 6.0 Lymph # (Auto) 1.2 [place] # (Auto) 0.5 Eos # (Auto) 0.0 Baso # (Auto) 0.0 Sodium 140 Potassium 3.1 L Chloride 107 Carbon Dioxide 23 Anion Gap 13.1 BUN 3 L Creatinine 0.66 Estimated Creat Clear 44 Estimated GFR 88 Est GFR ( Amer) 107 Glucose 108 H Calcium 7.6 L [place] 0.5 L Preliminary micro results at discharge 01/23/19 23:28 Blood Culture - Preliminary Blood NO GROWTH AFTER 48 HOURS 01/23/19 23:28 Blood Culture - Preliminary Blood NO GROWTH AFTER 48 HOURS DS: Diagnosis - Discharge Diagnosis (1) Preseptal cellulitis of right eye Status: Acute (2) Correa's palsy Status: Chronic (3) Bipolar 1 disorder Status: Chronic (4) Rhabdomyolysis Status: Resolved (5) Hypokalemia Status: Resolved (6) Anemia Status: Acute (7) Zoster Status: Ruled-out (8) Corneal abrasion Status: Acute Discharge Plan - Patient Discharge Instructions ACTIVITY: Continue current activity DIET: continue same diet Patient Instructions: Rhabdomyolysis, Fever of Unknown Origin, DI for Shingles, DI for Hypokalemia - Follow up Plan Unknown provider or service follow up:: 01/26/19 07:19 [facility] ophthalmology clinic, today, 01/26/19 Disposition: Home, Self-Skilled Nursing Medications: Home Medications Medication Instructions Recorded Confirmed Type ARIPiprazole [Aripiprazole 15mg 15 mg PO 1900 01/23/19 01/24/19 History Tablet] Ferrous Sulfate 325 mg PO 0600 01/23/19 01/24/19 History [place] Carbonate [[place] 300 mg PO 1700 01/23/19 01/24/19 History Carbonate ER] Oxybutynin Chloride [Oxybutynin 15 mg PO 1800 01/23/19 01/24/19 History Chloride ER] Quetiapine Fumarate 300 mg PO 1900 01/23/19 01/24/19 History Trazodone HCl 150 mg PO 1900 01/23/19 01/24/19 History buPROPion HCl [Bupropion HCl Sr] 100 mg PO 0600,1500 01/23/19 01/24/19 History Prescriptions/Medication Reconciliation: Continue Trazodone HCl 150 mg PO 1900 Quetiapine Fumarate 300 mg PO 1900 Oxybutynin Chloride [Oxybutynin Chloride ER] 15 mg PO 1800 [place] Carbonate [[place] Carbonate ER] 300 mg PO 1700 Ferrous Sulfate 325 mg PO 0600 buPROPion HCl [Bupropion HCl Sr] 100 mg PO 0600,1500 ARIPiprazole [Aripiprazole 15mg Tablet] 15 mg PO 1900
[2019-01-26 07:22] LABS: Anion Gap 13.9 mEq/L (5-15); Calcium 7.9 mg/dL (8.5-10.1)
[2019-01-26 07:43] LABS: Potassium 2.9 mmoL/L (3.5-5.1)
== END 2019-01-26 07:57 | disposition home or self-care (01) | DRG 603 ==
LOC: ER 22:45 → 2ND 22:45 → OBSVTOIN 01-24 01:23 → 2ND 01-24 01:24
PROVIDERS: ADMIT Family Medicine; ATTEND Internal Medicine Adolescent Medicine
CPT/HCPCS: 36415; 70450; 70482; 71010; 71045; 72125; 72170; 74177; 80048; 80053; 80178; 81001; 82550; 83605; 83735; 84484; 85007; 85025; 87040; 87275; 87276; 93005; 96365; 96375; 99285; J2405; Q9967; S0077

== ENCOUNTER → 2019-01-25 14:46 | Outpatient (POV) | payer MEDICARE, SELFPAY | DX: Z00.00 Encounter for general adult medical examination without abnormal findings (principal) ==

== ENCOUNTER → 2019-03-13 10:25 | Outpatient (CLI) | payer MEDICARE, SELFPAY ==
[2019-03-13 11:30] LABS: Eosinophils % 0.3 % (0.1-12.0); Hematocrit 44.9 % (37.0-47.0); Hemoglobin 14.2 g/dL (12.2-16.2); Lymphocytes # 1.3 K/mm3 (0.7-4.5); Lymphocytes % 15.4 % (10-50); Mean Corpuscular HGB Conc 31.5 g/dL (31.8-35.4); Mean Corpuscular Hemoglobin 29.1 pg (27.0-31.2); Mean Corpuscular Volume 92.4 fl (81-99); Monocytes # 0.4 K/mm3 (0.1-1.0); Monocytes % 4.5 % (1.7-9.3); Neutrophils # 6.8 K/mm3 (1.8-7.8); Neutrophils % 79.8 % (37.0-80.0); Platelet Count 323 K/mm3 (142-424); Red Blood Count 4.86 M/mm3 (4.20-5.40); Red Cell Distribution Width 12.7 % (11.5-17.5); White Blood Count 8.5 K/mm3 (4.8-10.8)
[2019-03-13 11:48] LABS: Alanine Aminotransferase 15 U/L (12-78); Albumin Level 4.1 gm/dL (3.4-5.0); Albumin/Globulin Ratio 1.2 (1.1-1.8); Alkaline Phosphatase 79 U/L (46-116); Anion Gap 13.7 mEq/L (5-15); Bilirubin,Total 0.3 mg/dL (0.2-1.0); Blood Urea Nitrogen 10 mg/dL (7-18); Calcium 9.2 mg/dL (8.5-10.1); Carbon Dioxide 27 mmol/L (21.0-32.0); Chloride 103 mmol/L (98-107); Creatinine,Serum 0.64 mg/dL (0.55-1.02); Estimated Glomerular Filt Rate 91 ml/min (>60); GFR (African American) 110 ML/MIN (>60); Globulin 3.5 gm/dl (1.3-3.2); Glucose 92 mg/dL (74-106); Sodium 139 mmol/L (136-145); Total Protein,Serum 7.6 gm/dL (6.4-8.2)
[2019-03-13 11:49] LABS: Potassium 4.7 mmoL/L (3.5-5.1)
[2019-03-13 11:50] LABS: Aspartate Amino Transferase 13 U/L (15-37)
[2019-03-14 14:32] LABS: Lithium (Eskalith(R)) 0.5 mmol/L (0.6-1.2)
== END ==
PROVIDERS: Visit Provider Internal Medicine Adolescent Medicine
DX: F31.9 Bipolar disorder, unspecified (principal); Z86.2 Personal history of diseases of the blood and blood-forming organs and certain disorders involving the immune mechanism
CPT/HCPCS: 36415; 80053; 80178; 85025

== ENCOUNTER → 2019-10-11 12:07 | Outpatient (CLI) | payer MEDICARE, SELFPAY ==
[2019-10-11 12:43] LABS: Basophils % 0.2 % (0.1-2.0); Eosinophils % 0.6 % (0.1-12.0); Hematocrit 46.9 % (37.0-47.0); Hemoglobin 14.6 g/dL (12.2-16.2); Lymphocytes # 1.1 K/mm3 (0.7-4.5); Lymphocytes % 17.7 % (10-50); Mean Corpuscular HGB Conc 31.2 g/dL (31.8-35.4); Mean Corpuscular Hemoglobin 28.2 pg (27.0-31.2); Mean Corpuscular Volume 90.3 fl (81-99); Mean Platelet Volume 8.1 fl (7.4-10.4); Monocytes # 0.4 K/mm3 (0.1-1.0); Monocytes % 6.3 % (1.7-9.3); Neutrophils # 4.5 K/mm3 (1.8-7.8); Neutrophils % 75.2 % (37.0-80.0); Platelet Count 322 K/mm3 (142-424); Red Blood Count 5.19 M/mm3 (4.20-5.40); Red Cell Distribution Width 12.1 % (11.5-17.5); White Blood Count 5.9 K/mm3 (4.8-10.8)
[2019-10-11 16:30] LABS: Alanine Aminotransferase 19 U/L (12-78); Albumin Level 3.7 gm/dL (3.4-5.0); Alkaline Phosphatase 106 U/L (46-116); Anion Gap 15.8 mEq/L (5-15); Aspartate Amino Transferase 11 U/L (15-37); Bilirubin,Total 0.2 mg/dL (0.2-1.0); Blood Urea Nitrogen 12 mg/dL (7-18); Calcium 8.7 mg/dL (8.5-10.1); Carbon Dioxide 26 mmol/L (21.0-32.0); Chloride 101 mmol/L (98-107); Chol/HDL Ratio 3.4 (1-3.5); Cholesterol 182 mg/dL (140-200); Creatinine,Serum 0.81 mg/dL (0.55-1.02); Estimated Glomerular Filt Rate 70 ml/min (>60); Ferritin 133 ng/mL (8-388); GFR (African American) 84 ML/MIN (>60); Globulin 3.6 gm/dl (1.3-3.2); Glucose 92 mg/dL (74-106); HDL Cholesterol 53 mg/dL (29-89); LDL Cholesterol 102 mg/dL (0-130); Potassium 4.8 mmoL/L (3.5-5.1); Sodium 138 mmol/L (136-145); Total Protein,Serum 7.3 gm/dL (6.4-8.2); Triglycerides 137 mg/dL (30-200); VLDL Cholesterol 27 mg/dL (0-40)
[2019-10-12 13:18] LABS: Vitamin B12 336 pg/mL (232-1245)
== END ==
PROVIDERS: Visit Provider Internal Medicine Adolescent Medicine
DX: E78.5 Hyperlipidemia, unspecified (principal); Z86.2 Personal history of diseases of the blood and blood-forming organs and certain disorders involving the immune mechanism
CPT/HCPCS: 36415; 80053; 80061; 82607; 82728; 85025